=== PATIENT | male | born 1935 | race Caucasian/White ===

== ENCOUNTER 2017-12-05 08:13 | Outpatient (CLI) | payer MEDICARE ==
[~2017-12-05] VITALS: Ht 180.3 cm; Wt 81.8 kg
[~2017-12-05 08:13] MED LIST: ASPIRIN325 MG PO; DAYPRO600 MG PO; LEVOTHROID75 MCG PO; LIPITOR80 MG PO; NORVASC5 MG PO
[2017-12-05 08:15] VITALS: Ht 180.3 cm; Wt 81.8 kg
[2017-12-05] MEDS ORDERED: COZAAR25 MG PO (08:22)
[2017-12-05 08:30] VITALS: BP 168/73
[2017-12-05 10:30] VITALS: BP 177/69
[2017-12-05 11:07] LABS: BASOPHILS 0.1 % (0-2); EOSINOPHILS 0.5 % (0-7); HEMATOCRIT 35.8 % (42.0-54.0); HEMOGLOBIN 12.1 g/dL (13.5-17.5); IMMATURE GRANULOCYTES 0.1 % (0-5); LYMPHOCYTES 26.4 % (15-50); MCHC 33.8 g/dL (31.0-37.0); MCV 88.8 fL (80.0-100.0); MEAN PLATELET VOLUME 9.3 fL (7.4-10.4); MONOCYTES 6.7 % (2-11); NEUTROPHILS 66.2 % (40-80); PLATELET COUNT 171 10x3/uL (130-400); RBC 4.03 10x6/uL (4.20-6.10); RDW 12.8 % (11.5-14.5); WBC 7.4 10x3/uL (4.8-10.8)
[2017-12-05 11:24] LABS: INR 1.05 (0.85-1.17); PROTIME 13.3 SECONDS (11.6-15.0)
[2017-12-05 11:33] LABS: ALBUMIN 3.4 g/dL (3.4-5.0); ANION GAP 13.6 mmol/L (8-16); BILIRUBIN - TOTAL 0.53 mg/dL (0.2-1.3); CALCIUM 8.7 mg/dL (8.5-10.1); CARBON DIOXIDE 24.9 mmol/L (21.0-32.0); CREATININE - SERUM 2.8 mg/dL (0.6-1.3); POTASSIUM - SERUM 4.5 mmol/L (3.5-5.1); PROTEIN - SERUM 6.7 g/dL (6.4-8.2)
[2017-12-05 15:35] VITALS: BP 175/63
== END 2017-12-05 15:35 | disposition home or self-care (01) ==
LOC: OBSVTIME → D.ER 08:13 → D.OPS 08:13 → EDSTATUS 09:24 → D.ER 10:41 → D.EDHOLD 10:41 → OBSVTIME 10:41 → D.EDHOLD 10:41 → D.ER 10:46 → D.EDHOLD 10:46 → D.ER 15:35 → D.OPS 15:35 → D.EDHOLD 15:35
PROVIDERS: Family Medicine
DX: S06.5X0A Traumatic subdural hemorrhage without loss of consciousness, initial encounter (principal); W18.39XA Other fall on same level, initial encounter; S22.39XA Fracture of one rib, unspecified side, initial encounter for closed fracture; I10 Essential (primary) hypertension; I25.10 Atherosclerotic heart disease of native coronary artery without angina pectoris; Z95.5 Presence of coronary angioplasty implant and graft; S00.93XA Contusion of unspecified part of head, initial encounter

== ENCOUNTER → 2017-12-13 15:02 | Outpatient (CLI) | payer MEDICARE ==
[2017-12-05 08:15] VITALS: BMI 25.1
[~2017-12-13 15:02] MED LIST changes: +COZAAR25 MG PO
== END | disposition home or self-care (01) ==
LOC: D.CT 15:02
DX: S06.5X0D Traumatic subdural hemorrhage without loss of consciousness, subsequent encounter (principal); X58.XXXA Exposure to other specified factors, initial encounter